=== PATIENT | female | born 1965 | race Hispanic/Latino ===

== ENCOUNTER → 2017-07-18 | Outpatient (CLI) | payer BC | END | disposition home or self-care (01) | LOC: OIH 11:40 | PROVIDERS: ATTEND Family Medicine | DX: R01.1 Cardiac murmur, unspecified (principal); R61 Generalized hyperhidrosis; R53.83 Other fatigue | CPT/HCPCS: 71045 ==

== ENCOUNTER → 2017-08-14 | Outpatient (CLI) | payer BC | LOC: OIH 11:58 | PROVIDERS: ATTEND Family Medicine | DX: R53.83 Other fatigue (principal); R19.8 Other specified symptoms and signs involving the digestive system and abdomen | CPT/HCPCS: 71045 ==

== ENCOUNTER 2018-08-12 08:24 | Emergency (ER) | payer BC | END 2018-08-12 09:37 | disposition home or self-care (01) | LOC: EDH 08:24 | DX: T78.40XA Allergy, unspecified, initial encounter (principal); L50.0 Allergic urticaria; E07.9 Disorder of thyroid, unspecified; Z90.89 Acquired absence of other organs; Z90.710 Acquired absence of both cervix and uterus; X58.XXXA Exposure to other specified factors, initial encounter ==

== ENCOUNTER → 2023-05-08 | Outpatient (CLI) | payer BC, OTHER | END | disposition home or self-care (01) | LOC: RAH 14:49 | PROVIDERS: ATTEND Internal Medicine | DX: M19.042 Primary osteoarthritis, left hand (principal); M16.12 Unilateral primary osteoarthritis, left hip; W19.XXXS Unspecified fall, sequela | CPT/HCPCS: 73130; 73552 ==

== ENCOUNTER → 2024-06-20 | Outpatient (CLI) | payer BC ==
--- NOTE | 2024-06-20 11:29 | HMCIMG ---
CT CHEST W/O CONTRAST HISTORY: Chest pain COMPARISON: None TECHNIQUE: Multiple sequential axial images of the chest were obtained from the thoracic inlet through upper abdomen. Patient was not given contrast through intravenous route. FINDINGS: Minimal interstitial fibrotic changes are seen. There is mild scoliosis. COPD changes are seen. There is no evidence of pulmonary nodule or parenchymal disease. No pleural effusion or pericardial effusion is seen. There is no evidence of pneumothorax. There are normal size mediastinal and hilar lymph nodes. The heart is not enlarged. Degenerative changes of the thoracolumbar spine are present. There is no evidence of adrenal nodule. IMPRESSION: 1. No evidence of pulmonary nodule or effusion is seen. Mild interstitial fibrosis is seen. COPD changes. CT was performed with one or more following dose reduction techniques: automated exposure control, adjustment of the mA and kv according to patient's size, or use of a iterative reconstruction technique.
== END | disposition home or self-care (01) ==
LOC: CANPRECLI → RAH 09:37
PROVIDERS: ATTEND Internal Medicine
DX: J44.9 Chronic obstructive pulmonary disease, unspecified (principal); J84.10 Pulmonary fibrosis, unspecified; R07.9 Chest pain, unspecified; M41.80 Other forms of scoliosis, site unspecified; M47.815 Spondylosis without myelopathy or radiculopathy, thoracolumbar region
CPT/HCPCS: 71250

== ENCOUNTER → 2025-06-11 | Outpatient (CLI) | payer BC ==
--- NOTE | 2025-06-12 00:05 | HMCIMG ---
EXAM: High Resolution CT of the Chest without Contrast CLINICAL HISTORY: Interstitial pulmonary disease, unspecified. TECHNIQUE: High resolution CT of the chest was performed with axial 5 mm collimated images, reconstructed to 1 mm image slices. Images reviewed in multiplanar reconstructions. Inspiratory and expiratory imaging has been performed. In the expiratory imaging, there are no definite areas of air trapping. A dose reduction technique was utilized. Total exam DLP 431. Total CTDI volume 10.6. CONTRAST: None. COMPARISON: None. FINDINGS: Lungs: The lungs are adequately expanded. Few ground-glass attenuation infiltrates and nodular infiltrates are present in the anterior segment of the left upper lobe and the bilateral upper lobes, showing minimal fibrosis and peribronchovascular interstitial thickening. No calcification. No tractional bronchiectasis. No pleural effusion. Central Airways: The trachea and mainstem bronchi are unremarkable. Heart and Mediastinum: The heart is normal in size. The pericardium is unremarkable. Coronary arterial calcification is present. No mediastinal, hilar, or supraclavicular adenopathy. Upper Abdomen: A 2 cm subcapsular hepatic hypodensity in segment (HU 8) is most compatible with a cyst. Visualized spleen is grossly unremarkable. Bones: Degenerative changes of the thoracic spine. IMPRESSION: * Ground-glass and nodular infiltrates in the anterior left upper lobe and bilateral upper lobes with minimal fibrosis and peribronchovascular interstitial thickening; no tractional bronchiectasis or adenopathy. Appearance most likely infectious. Consider CT PET if clinically indicated. * No definite evidence of airway obstructive disease. * No definite evidence of interstitial lung disease. /[place]
== END | disposition home or self-care (01) ==
LOC: RAH 13:43
PROVIDERS: ATTEND Internal Medicine Critical Care Medicine
DX: J84.10 Pulmonary fibrosis, unspecified (principal); J84.9 Interstitial pulmonary disease, unspecified; I25.10 Atherosclerotic heart disease of native coronary artery without angina pectoris; J98.4 Other disorders of lung
CPT/HCPCS: 71250